=== PATIENT | female | born 1975 | race Asian ===

== ENCOUNTER 2017-08-08 16:53 | Emergency (ER) | payer BC ==
[~2017-08-08] VITALS: Ht 157.5 cm; Wt 52.2 kg
[~2017-08-08 16:53] MED LIST: MULTIVITAMINS1 EAC7 PO
[2017-08-08 17:59] LABS: CLARITY,URINE CLEAR (CLEAR); COLOR,URINE YELLOW (YELLOW); LEUKOCYTE ESTERASE ,URINE NEGATIVE (NEGATIVE); NITRITE,URINE NEGATIVE (NEGATIVE); PROTEIN,URINE DIPSTICK TRACE (NEGATIVE)
[2017-08-08 18:00] LABS: BILIRUBIN,URINE NEGATIVE (NEGATIVE); KETONES,URINE TRACE (NEGATIVE); URINE UROBILINOGEN 0.2 mg/dL (0.2 - 1)
[2017-08-08 18:11] LABS: BACTERIA,URINE FEW /HPF; EPITHELIAL CELLS,URINE MODERATE /LPF; MUCUS,URINE FEW (RARE); WBC,URINE (MAN) 0-5 /HPF (0-5)
[2017-08-08] MEDS: METOCLOPRAMIDE HCL 10 MG/2ML VIAL IV ONE (18:15)
[2017-08-08] MEDS: DICYCLOMINE HCL 20 MG/2 ML VIAL IM ONE (18:15)
[2017-08-08] MEDS: KETOROLAC TROMETHAMINE 30 MG/ML VIAL IV STA (18:15)
[2017-08-08 18:17] LABS: BASOPHILS % 0.2 % (0.0-1.0); EOSINOPHILS # (AUTO) 0.1 (0.0-0.4); EOSINOPHILS % 0.8 % (0.0-6.0); HEMOGLOBIN 15.5 g/dL (12.0-16.0); LYMPHOCYTES # (AUTO) 2.2 (1.0-3.2); LYMPHOCYTES % 25.4 % (18.0-39.1); MEAN CORPUSCULAR HEMOGLOBIN 30.3 pg (28-32); MEAN CORPUSCULAR HGB CONC 33.7 g/dL (31-35); MONOCYTES # (AUTO) 0.4 (0.2-0.8); NEUTROPHILS % 68.3 % (38.7-80.0); PLATELET COUNT 245 x10e3/uL (140-360); RED BLOOD COUNT 5.11 x10e6/uL (3.6-5.1); RED CELL DISTRIBUTION WIDTH 12.5 % (11.7-14.4)
[2017-08-08 18:33] LABS: ALANINE AMINOTRANSFERASE 31 IU/L (0-55); ALBUMIN 4.4 g/dL (3.5-5.0); ALBUMIN/GLOBULIN RATIO 1.3 (0.8-2.0); ALKALINE PHOSPHATASE 55 IU/L (40-150); ANION GAP 12.4 mmol/L (8-16); BLOOD UREA NITROGEN 7 mg/dL (7-26); BUN/CREATININE RATIO 10 (6-25); CALCIUM 9.5 mg/dL (8.4-10.2); CARBON DIOXIDE 26 mmol/L (22-29); CHLORIDE 104 mmol/L (98-107); CREATININE, SERUM 0.71 mg/dL (0.57-1.11); EST GLOMERULAR FILTRATION RATE > 60 ML/MIN (60-); GLUCOSE 90 mg/dL (74-118); POTASSIUM 3.4 mmol/L (3.5-5.1); SODIUM 139 mmol/L (136-145)
== END 2017-08-08 20:05 | disposition home or self-care (01) ==
LOC: ER 16:53
DX: G43.909 Migraine, unspecified, not intractable, without status migrainosus (principal)
CPT/HCPCS: 36415; 80053; 81001; 81025; 85025; 99284; J0500; J1885; J2765

== ENCOUNTER → 2018-08-09 | Outpatient (CLI) | payer BC ==
[~2018-08-09] MED LIST changes: +DIATRIZOATE MEGL/DIATRIZOA SOD 30 ML BTL PO ONE; +IOPAMIDOL 370 MG/ML 200 ML INFUS..BTL INJ ONE; +SODIUM CHLORIDE 0.9% 50ML 50 ML ONE
--- NOTE | 2018-08-09 17:39 | Diagnostic Imaging Report ---
EXAM: CT Abdomen and Pelvis WITH contrast INDICATION: Left lower quadrant pain. Diarrhea. Prior pelvic surgery. COMPARISON: None. TECHNIQUE: Abdomen and pelvis were scanned utilizing a multidetector helical scanner from the lung base to the pubic symphysis after administration of IV contrast. Coronal and sagittal reformations were obtained. Routine protocol was performed. Scan was performed when during portal venous phase. IV CONTRAST: 100 mL of Isovue-370 ORAL CONTRAST: Gastrografin COMPLICATIONS: None RADIATION DOSE: Total DLP: 168.37 mGy*cm Estimated effective dose: (DLP x 0.015 x size factor) mSv CTDIvol has been reviewed. It is below the limits set by the Radiation Protocol Committee (RPC). Dose modulation, iterative reconstruction, and/or weight based adjustment of the mA/kV was utilized to reduce the radiation dose to as low as reasonably achievable. FINDINGS: LINES and TUBES: None. LOWER THORAX: Unremarkable HEPATOBILIARY: No focal hepatic lesions. No biliary ductal dilation. GALLBLADDER: No radio-opaque stones or sludge. No wall thickening. SPLEEN: No splenomegaly. PANCREAS: No focal masses or ductal dilatation. ADRENALS: No adrenal nodules KIDNEYS/URETERS: Kidneys enhance symmetrically. No hydronephrosis. No cystic or solid mass lesions. No stones. GI TRACT: Questionable mucosal thickening in the distal colon. No bowel obstruction. Appendix is normal. PELVIC ORGANS/BLADDER: 4.1 cm right adnexal cyst. LYMPH NODES: No lymphadenopathy. VESSELS: Unremarkable. PERITONEUM / RETROPERITONEUM: No free air or fluid. BONES: Unremarkable. SOFT TISSUES: Unremarkable. IMPRESSION: Questionable mucosal thickening in the distal colon. No bowel obstruction. Appendix is normal. GI consultation may be of benefit. 4.1 cm right adnexal cyst. Signed by: Dr. Hira Patten M.D. on 08/09/2018 5:36 PM
== END ==
LOC: CT 15:36
PROVIDERS: ATTEND Internal Medicine Gastroenterology
DX: R10.32 Left lower quadrant pain (principal)
CPT/HCPCS: 74177; 81025; Q9967

== ENCOUNTER → 2018-08-18 | Day surgery (SDC) | payer BC ==
[~2018-08-18] MED LIST changes: +CLARITIN-D 241 EACH PO; -DIATRIZOATE MEGL/DIATRIZOA SOD 30 ML BTL PO ONE; +FENTANYL CITRATE/PF 100MCG/2 ML INJ ONE; +HYOSCYAMINE SULFATE 0.5 MG/ML INJ ONE; -IOPAMIDOL 370 MG/ML 200 ML INFUS..BTL INJ ONE; +MIDAZOLAM HCL 2 MG/2 ML VIAL ONE; +PROPOFOL IV EMULSION 10 MG/ML 50 ML VIAL ONE; -SODIUM CHLORIDE 0.9% 50ML 50 ML ONE
[2018-08-18 08:41] LABS: WBC,FECAL (FECAL LACTOFERRIN) POSITIVE (NEGATIVE)
[2018-08-18 09:15] VITALS: BP 110/74
--- NOTE | 2018-08-18 15:26 | Operative Report ---
DATE OF PROCEDURE: 08/18/2018 SURGEON: Hossein Burgess MD PROCEDURES: 1. Esophagogastroduodenoscopy with biopsies. 2. Colonoscopy with biopsies. INDICATIONS FOR EGD: Heartburn, bloating. INDICATIONS FOR COLONOSCOPY: Lower abdominal pain, diarrhea, history of bloody stools. MEDICATIONS: The patient was done under MAC, please see anesthesiologist's note. PROCEDURE IN DETAIL: With the patient in left lateral decubitus position, a flexible fiberoptic Olympus gastroscope was introduced into the esophagus under direct visualization without any difficulty. There was some patchy erythema noted in the distal esophagus. The scope was then advanced with ease into the stomach and mucosa overlying the antrum and the body revealed some patchy erythema and low-grade to moderate edema and biopsies were obtained and sent to stain for H pylori. The pylorus was of normal contour and shape, it was intubated with ease and the scope was advanced all the way to the second portion of the duodenum. The scope was then withdrawn slowly. Mucosa overlying the proximal second portion and duodenal bulb appeared to be within normal limits. The scope was then withdrawn back into the stomach and retroflexed and mucosa overlying the fundus and cardia appeared to be within normal limits. The scope was then straightened out, it was subsequently withdrawn. The patient tolerated the procedure well. IMPRESSION: 1. Distal esophagitis, mild. 2. Gastritis, biopsied. Biopsies sent to stain for Helicobacter pylori. 3. Rule out sprue. PLAN: Follow up histology. Initiate Protonix 40 mg one p.o. q.a.m. a.c. The patient was then turned around. After adequate lubrication of the anal canal, flexible fiberoptic Olympus colonoscope was inserted into the rectum with ease and advanced all the way to the cecum. Mucosa overlying the cecum appeared to be within normal limits. The ileocecal valve was intubated and the scope was advanced into the terminal ileum, biopsies were obtained. The scope was then withdrawn back into the colon. It was then withdrawn slowly. Mucosa overlying the ascending, transverse, and descending appeared to be within normal limits. The mucosa overlying the distal sigmoid and the rectum was diffusely ulcerated and multiple biopsies were obtained. The scope was then retroflexed into the distal rectum and no internal hemorrhoids were noted. The scope was then straightened out. It was subsequently withdrawn after securing an adequate stool aspirate that was sent for the appropriate studies. The patient tolerated the procedure well. IMPRESSION: Ulcerative proctosigmoiditis. PLAN: Follow up histology. Follow up stool studies. Start Canasa suppositories 1000 mg at bedtime and Apriso 0.375 g four p.o. daily. Check IBD panel, CRP, and sedimentation rate. Hossein Burgess MD [facility] /[id number] cc: MD Hossein Jansen MD
[2018-08-18 15:34] LABS: C DIFFICILE TOXIN A&B AMP PROB NEGATIVE (NEGATIVE)
--- OUTSIDE RECORDS SUMMARY | 2018-08-20 15:52 | XMS REPORT | Continuity of Care Document ---
Author Author [facility] Organization [facility] Address Unknown Phone Unavailable Care Team Providers Care Public Safety Teacher Name Role Phone MD Trice, Kurtis ARRINGTON Unavailable Insurance Providers Payer name Policy type / Coverage type Policy ID Covered republican ID Policy Merchant [facility] [employer] - [facility] Encounters Encounter Performer Location Date Office Visit Kurtis Carnes MD [facility] September 16, 2014 Problems Problem Effective Dates Problem Status MENORRHAGIA September 08, 2014 Active PELVIC PAIN September 08, 2014 Active 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, 2014 Active Procedures Date Description Comments September 08, 2014 smoking status Never smoker Vital Signs Date Description Test Result September 08, 2014 height E&M - 8302-2 HEIGHT 62 in September 08, 2014 weight E&M - 3141-9 WEIGHT 96 lb September 08, 2014 temperature E&M TEMPERATURE 98.1 deg f September 08, 2014 respiratory rate E&M - 9279-1 RESP RATE 16 /min September 08, 2014 pulse rate E&M - 8867-4 PULSE RATE 68 /min September 08, 2014 blood pressure, systolic - 8480-6 BP SYSTOLIC 113 mm Hg September 08, 2014 blood pressure, diastolic - 8462-4 BP DIASTOLIC 78 mm Hg Results Date Description Test Name Value Reference Interpretation Status September 08, 2014 hemoglobin, blood HGB 13.8 g/dL 12.0-16.0 September 08, 2014 hematocrit, blood HCT 42.5 % 36.0-48.0 September 08, 2014 platelet count PLATELETS 195 K/CMM /mm3 133-450 September 08, 2014 sodium, serum SODIUM 140 MEQ/L mmol/L 135-145 September 08, 2014 potassium, serum POTASSIUM 4.0 MEQ/L mmol/L 3.5-5.1 September 08, 2014 creatinine, serum CREATININE 0.5 mg/dL 0.5-1.4 September 08, 2014 urea nitrogen, blood BUN 9 mg/dL 7-September 08, 2014 urea nitrogen/creatinine ratio, serum BUN/CREAT 18 null 6-25 September 08, 2014 albumin, serum ALBUMIN 4.5 g/dL 3.5-5.0 September 08, 2014 calcium, serum CALCIUM 9.5 mg/dL 8.5-10.5 September 08, 2014 alanine aminotransferase (SGPT), serum SGPT (ALT) 29 U/L 0-65 September 08, 2014 aspartate aminotransferase (SGOT), serum SGOT (AST) 25 U/L 0-37 September 08, 2014 alkaline phosphatase, serum ALK PHOS 67 U/L 39-136 September 08, 2014 thyroid stimulating hormone, serum TSH 0.916 uIU/mL 0.360-3.740
--- OUTSIDE RECORDS SUMMARY | 2018-08-20 15:52 | XMS REPORT | Continuity of Care Document ---
Author Author [facility] Address Unknown Phone Unavailable Care Team Providers Care Paediatric Surgeon Name Role Phone MD Dylon, Lindsey ARRINGTON Unavailable Insurance Providers Payer name Policy type / Coverage type Policy ID Covered constitution party ID Policy Merchant [facility] [employer] - [facility] [employer] - [facility] [employer] - [facility] Encounters Encounter Performer Location Date Office Visit Lindsey Osborne MD [facility] September 08, 2014 Problems Problem Effective Dates Problem Status MENORRHAGIA September 08, 2014 Active PELVIC PAIN September 08, 2014 Active Procedures Date Description Comments September [...]
--- OUTSIDE RECORDS SUMMARY | 2018-08-20 15:52 | XMS REPORT | Continuity of Care Document ---
Author Author [facility] Address Unknown Phone Unavailable Care Team Providers Care Fixed Wing Aircraft Crew Chief Name Role Phone MD Dylon, Lindsey ARRINGTON Unavailable Insurance Providers Payer name Policy type / Coverage type Policy ID Covered constitution party ID Policy Merchant [facility] [employer] - [facility] [employer] - [facility] [employer] - [facility] Encounters Encounter Performer Location Date Lab Report Lindsey Osborne MD [facility] September 08, 2014 Problems Problem Effective Dates [...]
--- OUTSIDE RECORDS SUMMARY | 2018-08-20 15:52 | XMS REPORT | Continuity of Care Document ---
Author Author [facility] Address Unknown Phone Unavailable Problems Problem Status Onset Date Classification Date Reported Comments Source BENIGN NEOPLASM OF OVARY Active 09/16/2014 Condition 09/16/2014 Medical Group 625.9 - FEM GENITAL SYM 626.2 - EXCESSIV Active 09/08/2014 [facility] MENORRHAGIA Active 09/08/2014 Condition 09/16/2014 Medical Group PELVIC PAIN Active 09/08/2014 Condition 09/16/2014 Medical Group Medications Medication Details Route Status Patient Instructions Ordering Provider Order Date Source Allergies, Adverse Reactions, Alerts Substance Category Reaction Severity Reaction type Status Date Reported Comments Source Immunizations Immunization Date Given Site Status Last Updated Comments Source Results Order Name Results Value Reference Range Date Interpretation Comments Source Pelvis w Pelvis Transvaginal US Pelvis w Pelvis Transvaginal US TRANSVESICAL AND TRANSVAGINAL PELVIC ULTRASOUND: CLINICAL HISTORY: 625.9 Unspecified Symptom Associated with Female Genital Organs TECHNIQUE AND FINDINGS: Multiple static images from transvesical and transvaginal pelvic ultrasound are submitted for interpretation. COMPARISON: 09/12/2014. TRANSVESICAL PELVIC ULTRASOUND: Normal urinary bladder. The uterus is normal in size measuring 8.7 x 3.2 x 4.7 cm with endometrial stripe thickness measuring 6 mm. The right ovary is normal in size measuring 3.6 x 1.8 x 1.8 cm containing scattered follicles. A simple cyst measuring 4.1 x 2.9 x 2.9 cm is seen in the left adnexa without definite identifiable ovarian parenchyma. No free pelvic fluid. TRANSVAGINAL PELVIC ULTRASOUND: Normal size uterus with endometrial stripe thickness measuring 7 mm. Normal size right ovary measuring 2.1 x 1.9 x 1.7 cm containing scattered follicles and a 1.3 cm simple follicular cyst. Normal size left ovary measuring 3.5 x 1.9 x 1.7 cm containing scattered follicular cysts measuring up to 1.3 cm in maximum. An adjacent simple left paraovarian cyst is again seen measuring 4.2 x 2.5 x 3.3 cm (previously 4.8 x 4.4 x 2.1 cm). No free pelvic fluid. IMPRESSION: 1. Decreasing size left paraovarian cyst. Scattered follicles and follicular cysts otherwise in both ovaries. Additional short interval follow-up is recommended to document further regression. 2. Normal uterus and endometrial stripe. SL:10/20/2014 - - Read by: Niko Lopes MD Dictated Date/time: 10/21/14 07:49 Electronically Signed by: Niko Lopes MD 10/21/14 07:55 FINAL REPORT [facility] Pelvis Transvaginal US Pelvis Transvaginal US EXAM: Pelvic ultrasound HISTORY: Pelvic pain, menorrhagia. COMPARISON: None. TECHNIQUE: Transabdominal and transvaginal pelvic ultrasound FINDINGS: TRANSABDOMINAL PELVIC ULTRASOUND: The uterus measures 8.4 cm length. The ovaries are not visualized. The bladder appears unremarkable. TRANSVAGINAL PELVIC ULTRASOUND: Exam performed to better evaluate the ovaries and endometrium. The endometrial stripe measures 0.4 cm thickness. The myometrium appears unremarkable. The cervix is unremarkable. Both ovaries are visualized and contain follicles. An approximately 4.8 x 4 x 2.1 cm anechoic, somewhat elongated cystic mass is seen in the left adnexa. Small amount of free fluid in the cul-de-sac is likely physiological. IMPRESSION: An approximately 5 cm cystic mass in the left adnexa may reflect a parovarian cyst or hydrosalpinx. A 6-8 weeks follow-up ultrasound is advised to reevaluate. SL: 09/12/2014 - - Read by: Lisandro Díaz MD Dictated Date/time: 09/12/14 14:07 Electronically Signed by: Lisandro Díaz MD 09/12/14 14:12 FINAL REPORT [facility] Chemistry SODIUM 140 MEQ/L mmol/L 135 - 145 09/08/2014 Medical Group Chemistry POTASSIUM 4.0 MEQ/L mmol/L 3.5 - 5.1 09/08/2014 [facility] Chemistry CREATININE 0.5 mg/dL 0.5 - 1.4 09/08/2014 [facility] Chemistry BUN 9 mg/dL 7 - 22 09/08/2014 [facility] Chemistry BUN/CREAT 18 6 - 25 09/08/2014 [facility] Chemistry ALBUMIN 4.5 g/dL 3.5 - 5.0 09/08/2014 [facility] Chemistry CALCIUM 9.5 mg/dL 8.5 - 10.5 09/08/2014 Medical [facility] Chemistry SGPT (ALT) 29 U/L 0 - 65 09/08/2014 Medical [facility] Chemistry SGOT (AST) 25 U/L 0 - 37 09/08/2014 Medical [facility] Chemistry ALK PHOS 67 U/L 39 - 136 09/08/2014 Medical [facility] Chemistry TSH 0.916 uIU/mL 0.360 - 3.740 09/08/2014 Medical [facility] Hematology HGB 13.8 g/dL 12.0 - 16.0 09/08/2014 Medical [facility] Hematology HCT 42.5 % 36.0 - 48.0 09/08/2014 Medical [facility] Hematology PLATELETS 195 K/CMM /mm3 133 - 450 09/08/2014 Medical [facility] Vital Signs Vital Sign Value Date Comments Source Height 62 09/08/2014 Medical [facility] Weight 96 09/08/2014 [facility] Temperature Oral (F) 98.1 F 09/08/2014 Medical Group Respitory Rate 16 09/08/2014 [facility] Heart Rate 68 09/08/2014 [facility] Systolic (mm Hg) 113 09/08/2014 [facility] Diastolic (mm Hg) 78 09/08/2014 [facility] Encounters Location Location Details Encounter Type Encounter Number Reason For Visit Attending Provider ADM Date DC Date Status Source [facility] Office Visit [id number] Brenden Verma MD 09/08/2014 09/08/2014 [facility] Lab Report [id number] Brenden Verma MD 09/08/2014 09/08/2014 Medical [facility] Outpatient Imaging [facility] [id number] Brenden Verma 09/12/2014 09/13/2014 [facility] Office Visit [id number] Kurtis Carnes MD 09/16/2014 09/16/2014 [facility] Outpatient Imaging [facility] [id number] Brenden Verma 10/20/2014 10/21/2014 [facility] Outpatient [id number] BRENDEN VERMA 03/28/2016 Active [facility] Procedures Procedure Code Date Perfomer Comments Source
--- OUTSIDE RECORDS SUMMARY | 2018-08-20 15:52 | XMS REPORT ---
Author [facility] Address Unknown Phone Unavailable Care Team Providers Care .Net Programmer Name Role Phone MARY VIVEROS Unavailable Unavailable Problems This patient has no known problems. Allergies, Adverse Reactions, Alerts This patient has no known allergies or adverse reactions. Medications This patient has no known medications. Results Test Description Test Time Test Comments Text Results Atomic Results Result Comments CT ABDOMEN/PELVIS W 2018-08-09 17:32:00 [facility] [address] [address] Patient Name: BALA MOREIRA MR #: [id number] : 1975 Age/Sex: 43/F Req #: [id number] Adm Physician: Ordered by: MARY VIVEROS MD Report #: [id number] Location: CT Room/Bed: Procedure: [id number] CT/CT ABDOMEN/PELVIS W Exam Date: 08/09/18 Exam Time: 1710 REPORT STATUS: Signed EXAM: CT Abdomen and Pelvis WITH contrast INDICATIO N: Left lower quadrant pain. Diarrhea. Prior pelvic surgery. COMPARISON: None. TECHNIQUE: Abdomen and pelvis were scanned utilizing a multidetector helical scanner from the lung base to the pubic symphysis after administration of IV contrast. Coronal and sagittal reformations were obtained. Routine protocol was performed. Scan was performed when during portal venous phase. IV CONTRAST: 100 mL of Isovue-370 ORAL CONTRAST: Gastrografin COMPLICATIONS: None RADIATION DOSE: Total DLP: 168.37 mGy*cm Estimated effective dose: (DLP x 0.015 x size factor) mSv CTDIvol has been reviewed. It is below the limits set by the Radiation Protocol Committee (RPC). Dose modulation, iterative reconstruction, and/or weight based adjustment of the mA/kV was utilized to reduce the radiation dose to as low as reasonably achievable. FINDINGS: LINES and TUBES: None. LOWER THORAX: Unremarkable HEPATOBILIARY: No focal hepatic lesions. No biliary ductal dilation. GALLBLADDER: No radio- opaque stones or sludge. No wall thickening. SPLEEN: No splenomegaly. PANCREAS: No focal masses or ductal dilatation. ADRENALS: No adrenal nodules KIDNEYS/URETERS: Kidneys enhance symmetrically. No hydronephrosis. No cystic or solid mass lesions. No stones. GI TRACT: Questionable mucosal thickening in the distal colon. No bowel obstruction. Appendix is normal. PELVIC ORGANS/BLADDER: 4.1 cm right adnexal cyst. LYMPH NODES: No lymphadenopathy. VESSELS: Unremarkable. PERITONEUM / RETROPERITONEUM: No free air or fluid. BONES: Unremarkable. SOFT TISSUES: Unremarkable. IMPRESSION: Questionable mucosal thickening in the distal colon. No bowel obstruction. Appendix is normal. GI consultation may be of benefit. 4.1 cm right adnexal cyst. Signed by: Dr. Hira Patten M.D. on 08/09/2018 5:36 PM Dictated By: HIRA PATTEN MD, MD [id number] Transcribed By: ZA on 08/09/18 1736 COPY TO: MARY VIVEROS MD
--- OUTSIDE RECORDS SUMMARY | 2018-08-20 15:52 | XMS REPORT | Summary of Care ---
Author Organization Unknown Address Unknown Phone Unavailable Encounter HQ Encntr_alias(FIN) [id number] Date(s): 10/20/14 - 10/20/14 [facility] Outpatient Imaging [address] [place], [place] [address]- [phone] Discharge Disposition: Home Physician Attending: Lindsey Osborne MD Vital Signs No data available for this section Problem List No data available for this section Allergies, Adverse Reactions, Alerts No data available for this section Medications No data available for this section Results No data available for this section Immunizations No data available for this section Procedures No data available for this section Social History No data available for this section Assessment and Plan No data available for this section
--- OUTSIDE RECORDS SUMMARY | 2018-08-20 15:52 | XMS REPORT | Summary of Care ---
Author Organization Unknown Address Unknown Phone Unavailable Encounter HQ Encntr_alias(FIN) [id number] Date(s): 09/12/14 - 09/12/14 [facility] Outpatient Imaging [address] [place], [place] [address]- [phone] Discharge Disposition: Home Physician Attending: Lindsey Osborne [...]
== END | disposition home or self-care (01) ==
LOC: OR 05:42
PROVIDERS: ATTEND Internal Medicine Gastroenterology
DX: K51.30 Ulcerative (chronic) rectosigmoiditis without complications (principal); K29.70 Gastritis, unspecified, without bleeding; K20.9 Esophagitis, unspecified; K62.89 Other specified diseases of anus and rectum
CPT/HCPCS: 36415; 43239; 45380; 81025; 83630; 83993; 85651; 86140; 86256; 86671; 87045; 87177; 87328; 87493; J1980; J2250; J2704

== ENCOUNTER 2018-08-30 22:33 | Emergency (ER) | payer BC ==
[~2018-08-30] VITALS: Ht 157.5 cm; Wt 52.2 kg
[~2018-08-30 22:33] MED LIST changes: -FENTANYL CITRATE/PF 100MCG/2 ML INJ ONE; -HYOSCYAMINE SULFATE 0.5 MG/ML INJ ONE; -MIDAZOLAM HCL 2 MG/2 ML VIAL ONE; -PROPOFOL IV EMULSION 10 MG/ML 50 ML VIAL ONE
[2018-08-30 22:56] LABS: BASOPHILS % 0.2 % (0.0-1.0); EOSINOPHILS # (AUTO) 0.1 (0.0-0.4); EOSINOPHILS % 0.6 % (0.0-6.0); HEMATOCRIT 38.3 % (34.2-44.1); HEMOGLOBIN 12.4 g/dL (12.0-16.0); LYMPHOCYTES # (AUTO) 2.5 (1.0-3.2); LYMPHOCYTES % 22.8 % (18.0-39.1); MEAN CORPUSCULAR HEMOGLOBIN 26.2 pg (28-32); MEAN CORPUSCULAR HGB CONC 32.4 g/dL (31-35); MONOCYTES # (AUTO) 0.5 (0.2-0.8); MONOCYTES % 4.9 % (4.4-11.3); NEUTROPHILS # (AUTO) 7.8 (2.1-6.9); NEUTROPHILS % 71.1 % (38.7-80.0); PLATELET COUNT 282 x10e3/uL (140-360); RED BLOOD COUNT 4.73 x10e6/uL (3.6-5.1); RED CELL DISTRIBUTION WIDTH 13.5 % (11.7-14.4)
[2018-08-30 23:10] LABS: ALANINE AMINOTRANSFERASE 20 IU/L (0-55); ALBUMIN 4.4 g/dL (3.5-5.0); ALBUMIN/GLOBULIN RATIO 1.3 (0.8-2.0); ALKALINE PHOSPHATASE 75 IU/L (40-150); ANION GAP 14.4 mmol/L (8-16); BLOOD UREA NITROGEN 5 mg/dL (7-26); BUN/CREATININE RATIO 7 (6-25); CALCIUM 9.8 mg/dL (8.4-10.2); CARBON DIOXIDE 22 mmol/L (22-29); CHLORIDE 102 mmol/L (98-107); CREATININE, SERUM 0.73 mg/dL (0.57-1.11); EST GLOMERULAR FILTRATION RATE > 60 ML/MIN (60-); GLUCOSE 120 mg/dL (74-118); LIPASE 20 U/L (8-78); POTASSIUM 3.4 mmol/L (3.5-5.1); SODIUM 135 mmol/L (136-145)
[2018-08-30 23:46] LABS: CLARITY,URINE CLEAR (CLEAR); COLOR,URINE YELLOW (YELLOW); KETONES,URINE NEGATIVE (NEGATIVE); LEUKOCYTE ESTERASE ,URINE NEGATIVE (NEGATIVE); NITRITE,URINE NEGATIVE (NEGATIVE); PROTEIN,URINE DIPSTICK NEGATIVE (NEGATIVE)
[2018-08-30 23:47] LABS: BILIRUBIN,URINE NEGATIVE (NEGATIVE); URINE UROBILINOGEN 0.2 mg/dL (0.2 - 1)
[2018-08-30 23:53] LABS: BACTERIA,URINE RARE /HPF; EPITHELIAL CELLS,URINE FEW /LPF; RBC,URINE 0-5 /HPF (0-5); WBC,URINE (MAN) 0-5 /HPF (0-5)
[2018-08-31] MEDS ORDERED: POTASSIUM CHLORIDE 20 MEQ TAB CR PO STA (00:24)
== END 2018-08-31 01:19 | disposition home or self-care (01) ==
LOC: ER 22:33
DX: R19.7 Diarrhea, unspecified (principal)
CPT/HCPCS: 36415; 80053; 81001; 83690; 84702; 85025; 93005

== ENCOUNTER → 2019-10-16 | Day surgery (SDC) | payer BC, OTHER ==
[~2019-10-16] MED LIST changes: +APRISO0.375 GM PO; +DEXILANT60 MG PO; +ETOMIDATE 2 MG/ML 10 ML INJ IV ONE; +LIDOCAINE HCL 2% LOCAL INJ 5 ML SDV VIAL INJ ONE; +MIDAZOLAM HCL 2 MG/2 ML VIAL ONE; +PROPOFOL IV EMULSION 10 MG/ML 20 ML VIAL ONE; +PROTONIX20 MG PO
[2019-10-16 12:40] VITALS: BP 122/73
== END | disposition home or self-care (01) ==
LOC: OR 09:00
PROVIDERS: ATTEND Internal Medicine Gastroenterology
DX: K63.89 Other specified diseases of intestine (principal); K51.50 Left sided colitis without complications; K92.1 Melena; R19.7 Diarrhea, unspecified; K21.9 Gastro-esophageal reflux disease without esophagitis; K44.9 Diaphragmatic hernia without obstruction or gangrene; Z87.891 Personal history of nicotine dependence; K64.8 Other hemorrhoids; K52.89 Other specified noninfective gastroenteritis and colitis; Z11.59 Encounter for screening for other viral diseases; Z01.812 Encounter for preprocedural laboratory examination
CPT/HCPCS: 45380; 81025; 87635; J2001; J2704; J2250

== ENCOUNTER 2020-01-11 02:11 | Emergency (ER) | payer BC, OTHER ==
[~2020-01-11] VITALS: Ht 157.5 cm; Wt 52.2 kg
[~2020-01-11 02:11] MED LIST changes: -ETOMIDATE 2 MG/ML 10 ML INJ IV ONE; -LIDOCAINE HCL 2% LOCAL INJ 5 ML SDV VIAL INJ ONE; -MIDAZOLAM HCL 2 MG/2 ML VIAL ONE; -PROPOFOL IV EMULSION 10 MG/ML 20 ML VIAL ONE
[2020-01-11 02:23] LABS: BASOPHILS % 0.3 % (0.0-1.0); EOSINOPHILS # (AUTO) 0.1 (0.0-0.4); HEMATOCRIT 41.6 % (34.2-44.1); HEMOGLOBIN 12.9 g/dL (12.0-16.0); LYMPHOCYTES # (AUTO) 3.6 (1.0-3.2); LYMPHOCYTES % 53.7 % (18.0-39.1); MEAN CORPUSCULAR HEMOGLOBIN 24.2 pg (28-32); MEAN CORPUSCULAR VOLUME 77.9 fL (81-99); MONOCYTES # (AUTO) 0.6 (0.2-0.8); NEUTROPHILS # (AUTO) 2.4 (2.1-6.9); NEUTROPHILS % 35.9 % (38.7-80.0); PLATELET COUNT 288 x10e3/uL (140-360); RED BLOOD COUNT 5.34 x10e6/uL (3.6-5.1); RED CELL DISTRIBUTION WIDTH 16.3 % (11.7-14.4)
--- OUTSIDE RECORDS SUMMARY | 2020-01-11 02:25 | XMS REPORT | Continuity of Care Document ---
Author Author [facility] t Organization [facility] Address [address] [place] [address] Phone Unavailable Care Team Providers Care Career Services Director Name Role Phone ALCIRA DENNEY MD PCP MARY VIVEROS Attphys Unavailable ShpatsLindsey Attphys Payers Payer Name Policy Type Policy Number Effective Date Expiration Date S keiko [id number] 2015 00:00:00 [facility] Problems Condition Name Condition Details Condition Category Status Onset Date Resolution Date Last Treatment Date Treating Clinician Comments Source 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 Condition 09/16/2014 Medical Group Condition Active 2014-09-16 00:00:00 2014-09-16 10:24:49 Bulmaro Portillo 625.9 - FEM GENITAL SYM 626.2 - EXCESSIV 625.9 - FEM GENITAL SYM 626.2 - EXCESSIV Active 09/08/2014 [facility] Active 2014-09-08 00:01:00 2014-09-12 09:29:00 Bulmaro Portillo MENORRHAGIA DELMI RRHAGIA Active 09/08/2014 Condition 09/16/2014 Medical Group Condition Active 2014-09-08 00:00:00 2014-08 10:24:49 Bulmaro Portillo PELVIC PAIN PELV IC PAIN Active 09/08/2014 Condition 09/16/2014 Medical Group Condition Active 2014-09-08 00:00:00 2014-08 10:24:49 Bulmaro Portillo Urinary tract bacterial infections Urinary tract bacterial infec tions Problem Active [facility] Allergies, Adverse Reactions, Alerts Allergy Name Allergy Type Status Severity Reaction(s) Onset Date Inacti ve Date Treating Clinician Comments Source 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 Ordering Clinician Indication Dosage Frequency Signature (SIG) Comments Components Source Loratadine/Pseudoephedrine (Claritin-D 24 Hour Tablet) 1 Each Tab.er.24h Loratadine/Pseudoephedrine (Claritin-D 24 Hour Tablet) 1 Each Tab.er.24h Yes 1 Daily [facility] Multivitamin (Multivitamins) 1 Each Capsule Multivitam in (Multivitamins) 1 Each Capsule Yes 1 Daily [facility] Vital Signs Vital Name Observation Time Observation Value Comments Source [facility] 2014-09[facility]08 [facility] Weight 2014-09-08 19:18:20 [facility] Temperature Oral (F) 2014-09-08 19:18:20 98.1 F [facility] Respitory Rate 2014-09-08 19:18:20 Fernando al Rowe Heart Rate 2014-09-08 19:18:20 [facility] Systolic (mm Hg) 2014-09-08 19:18:20 Lb Portillo Diastolic (mm Hg) 2014-09-08 19:18:20 Mem orirobert Portillo Procedures Procedure Date / Time Performed Performing Clinician [facility] e EGD BIOPSY SINGLE/MULTIPLE 2018-08-18 00:00:00 MARY VIVEROS [facility] COLONOSCOPY AND BIOPSY 2018-08-18 00:00:00 MARY VIVEROS [facility] Computed tomography of abdomen and pelvis with contrast 2018 00:00:00 MARY VIVEROS [facility] Encounters Start Date/Time End Date/Time [facility] ID Source 2018-08-30 22:33:00 2018-08-31 01:19:00 Departed Emergency Room [facility] [id number] [facility] 2018-08-18 05:42:00 2018-08-18 05:42:00 Registered Surgical Day Care [facility] [id number] [facility] 2018-08-09 15:36:00 2018-08-09 15:36:00 Registered Clinic 3 MARY VIVEROS [facility] [id number] [facility] 2017-08-08 16:53:00 2017-08-08 20:05:00 Departed Emergency Room [facility] [id number] [facility] 2014-10-20 13:01:00 2014-10-20 23:59:00 Outpatient Lindsey Osborne TIFFANI [id number] 2014-09-12 09:19:00 2014-09-12 23:59:00 Outpatient Lindsey Osborne [facility] [id number] Results Test Description Test Time Test Comments Results Result Comments Source Urine WBC 2018-08-30 23:53:00 Test Item Urine WBC (test code = 5821-4) 0-5 0-5 [facility] [id number] 23:53:00* Test Item Value Reference Range Interpretation Comments Urine RBC (test code = 97345-1) 0-5 0-5 [facility] Lhlkbwuj7156-11-34 23:53:00* Test Item Value Reference Range Interpretation Comments Urine Bacteria (test code = 70575-7) RARE NONE [facility] Epithelial Dmiqf8646-13-91 23:53:00 * Test Item Value Reference Range Interpretation Comments Urine Epithelial Cells (test code = 75375-6) FEW NONE [facility] Rommf2834-77-88 23:47:00* Test Item Value Reference Range Interpretation Comments Urine Color (test code = 5778-6) YELLOW YELLOW [facility] Uofxvng2694-31-09 23:47:00* Test Item Value Reference Range Interpretation Comments Urine Clarity (test code = 53762-5) CLEAR CLEAR [facility] Specific Txopdna3947-52-74 23:47:00 * Test Item Value Reference Range Interpretation Comments Urine Specific [place] (test code = 5811-5) 1.005 1.010-1.02 5 L [facility] rJ0740-07-19 23:47:00* Test Item Value Reference Range Interpretation Comments Urine pH (test code = 09220-1) 7 5-7 [facility] Leukocyte Tljchvrb4595-00-99 23:47:00* Test Item Value Reference Range Interpretation Comments Urine Leukocyte Esterase (test code = 5799-2) NEGATIVE NEGATIVE [facility] Pyhnwpi4386-82-27 23:47:00* Test Item Value Reference Range Interpretation Comments Urine Nitrite (test code = 71325-8) NEGATIVE NEGATIVE [facility] Pqlfbav5804-98-91 23:47:00* Test Item Value Reference Range Interpretation Comments Urine Protein (test code = 5804-0) NEGATIVE NEGATIVE [facility] Glucose (UA)2018-08-30 23:47:00* Test Item Value Reference Range Interpretation Comments Urine Glucose (UA) (test code = 2349-9) NEGATIVE NEGATIVE [facility] Vpaynvy2835-34-77 23:47:00* Test Item Value Reference Range Interpretation Comments Urine Ketones (test code = 00601-2) NEGATIVE NEGATIVE [facility] Uyblskhwiqhf8843-04-27 23:47:00* Test Item Value Reference Range Interpretation Comments Urine Urobilinogen (test code = 64614-6) 0.2 0.2-1 [facility] Mmynuzmcz4516-97-95 23:47:00* Test Item Value Reference Range Interpretation Comments Urine Bilirubin (test code = 1978-6) NEGATIVE NEGATIVE [facility] Hjuia3239-31-96 23:47:00* Test Item Value Reference Range Interpretation Comments Urine Blood (test code = 68890-9) NEGATIVE NEGATIVE [facility] BrookHuman Chorionic Gonadotropin, Qual 2018-08-30 23:17:00* Test Item Value Reference Range Interpretation Comments Human Chorionic Gonadotropin, Qual (test code = 2118-8) NEGATIVE NEGATIVE [facility] Oidlx0784-76-45 23:11:00* Test Item Value Reference Range Interpretation Comments Sodium Level (test code = 2951-2) 135 136-145 L [facility]Potassium Ndsuj6813-67-12 23:11:00* Test Item Value Reference Range Interpretation Comments Potassium Level (test code = 2823-3) 3.4 3.5-5.1 L [facility] BrookChloride Kjgnd2176-08-74 23:11:00* Test Item Value Reference Range Interpretation Comments Chloride Level (test code = 2075-0) 102 98-107 [facility] BrookCarbon Dioxide Ueayl5629-18-06 23:11:00* Test Item Value Reference Range Interpretation Comments Carbon Dioxide Level (test code = 2028-9) 22 22-29 [facility] BrookAnion Wev4662-79-28 23:11:00* Test Item Value Reference Range Interpretation Comments Anion Gap (test code = 66099-2) 14.4 8-16 [facility]Blood Urea Ajbrcwql7521-21-50 23:11:00* Test Item Value Reference Range Interpretation Comments Blood Urea Nitrogen (test code = 3094-0) 5 7-26 L [facility] BrookCreatinine2019-05-02 23:11:00* Test Item Value Reference Range Interpretation Comments Creatinine (test code = 2160-0) 0.73 0.57-1.11 [facility] BrookBUN/Creatinine Zkkgf1909-07-36 23:11:00* Test Item Value Reference Range Interpretation Comments BUN/Creatinine Ratio (test code = 3097-3) 7 6-25 [facility] BrookEstimat Glomerular Filtration Rate 2018-08-30 23:11:00* Test Item Value Reference Range Interpretation Comments Estimat Glomerular Filtration Rate (test code = 465031437) > 60 >60 Ranges were taken from the National Kidney Disease Education Program and the [facility] Kidney Foundation literature.Reference ranges:60 or greater: Fqnkdx84-68 ( for 3 consecutive months): Chronic kidney disease 15 or less: Kidney failureAdventHealth Rollins BrookGlucose Ftsmg5486-03-92 23:11:00* Test Item Value Reference Range Interpretation Comments Glucose Level (test code = GDA9000) 120 74-118 H [facility] BrookCalcium Gcjgv3674-84-52 23:11:00* Test Item Value Reference Range Interpretation Comments Calcium Level (test code = 31946-2) 9.8 8.4-10.2 [facility] BrookTotal Jorwlegsf4306-92-21 23:11:00* Test Item Value Reference Range Interpretation Comments Total Bilirubin (test code = 1975-2) 0.4 0.2-1.2 [facility] BrookAspartate Amino Transf (AST/SGOT) 2018-08-30 23:11:00* Test Item Value Reference Range Interpretation Comments Aspartate Amino Transf (AST/SGOT) (test code = Aspartate Amino Transf (AST/SGOT)) 25 5-34 [facility] BrookAlanine Aminotransferase (ALT/SGPT) 2018-08-30 23:11:00* Test Item Value Reference Range Interpretation Comments Alanine Aminotransferase (ALT/SGPT) (test code = 1742-6) 20 0-55 [facility] Cuhpbxv0898-19-54 23:11:00* Test Item Value Reference Range Interpretation Comments Total Protein (test code = 2885-2) 7.9 6.5-8.1 [facility] BrookAlbumin2019-05-02 23:11:00* Test Item Value Reference Range Interpretation Comments Albumin (test code = 1751-7) 4.4 3.5-5.0 [facility] BrookGlobulin2019-05-02 23:11:00* Test Item Value Reference Range Interpretation Comments Globulin (test code = 90799-2) 3.5 2.3-3.5 [facility] BrookAlbumin/Globulin Najqq7634-79-02 23:11:00 * Test Item Value Reference Range Interpretation Comments Albumin/Globulin Ratio (test code = 1759-0) 1.3 0.8-2.0 [facility] BrookAlkaline Izpwlpbkqsc1816-99-26 23:11:00* Test Item Value Reference Range Interpretation Comments Alkaline Phosphatase (test code = 6768-6) 75 40-150 [facility] BrookLipase2019-05-02 23:11:00* Test Item Value Reference Range Interpretation Comments Lipase (test code = 3040-3) 20 8-78 [facility] BrookWhite Blood Wzpxg9203-93-90 23:01:00* Test Item Value Reference Range Interpretation Comments White Blood Count (test code = 6690-2) 10.96 4.8-10.8 H [facility] BrookRed Blood Pzunu2088-57-15 23:01:00* Test Item Value Reference Range Interpretation Comments Red Blood Count (test code = 789-8) 4.73 3.6-5.1 [facility] BrookHemoglobin2019-05-02 23:01:00* Test Item Value Reference Range Interpretation Comments Hemoglobin (test code = 23855-9) 12.4 12.0-16.0 [facility] BrookHematocrit2019-05-02 23:01:00* Test Item Value Reference Range Interpretation Comments Hematocrit (test code = 4544-3) 38.3 34.2-44.1 [facility] BrookMean Corpuscular Yqjkqc1298-11-42 23:01:00* Test Item Value Reference Range Interpretation Comments Mean Corpuscular Volume (test code = 787-2) 81.0 81-99 [facility] BrookMean Corpuscular Mpmatjfkpd5388-75-16 23:01:00* Test Item Value Reference Range Interpretation Comments Mean Corpuscular Hemoglobin (test code = 785-6) 26.2 28-32 L [facility] BrookMean Corpuscular Hemoglobin Concent 2018-08-30 23:01:00* Test Item Value Reference Range Interpretation Comments Mean Corpuscular Hemoglobin Concent (test code = 786-4) 32.4 31-35 [facility] BrookRed Cell Distribution Wycty5438-95-77 23:01:00* Test Item Value Reference Range Interpretation Comments Red Cell Distribution Width (test code = 37599-1) 13.5 11.7 -14.4 [facility] BrookPlatelet Ceeaz7258-47-90 23:01:00* Test Item Value Reference Range Interpretation Comments Platelet Count (test code = 777-3) 282 140-360 [facility] BrookNeutrophils (%) (Auto)2018-08-30 23:01:00 * Test Item Value Reference Range Interpretation Comments Neutrophils (%) (Auto) (test code = 94492-2) 71.1 38.7-80.0 [facility] BrookLymphocytes (%) (Auto)2018-08-30 23:01:00 * Test Item Value Reference Range Interpretation Comments Lymphocytes (%) (Auto) (test code = 736-9) 22.8 18.0-39.1 [facility] BrookMonocytes (%) (Auto)2018-08-30 23:01:00* Test Item Value Reference Range Interpretation Comments Monocytes (%) (Auto) (test code = 5905-5) 4.9 4.4-11.3 [facility] BrookEosinophils (%) (Auto)2018-08-30 23:01:00 * Test Item Value Reference Range Interpretation Comments Eosinophils (%) (Auto) (test code = 713-8) 0.6 0.0-6.0 [facility] BrookBasophils (%) (Auto)2018-08-30 23:01:00* Test Item Value Reference Range Interpretation Comments Basophils (%) (Auto) (test code = 706-2) 0.2 0.0-1.0 [facility] BrookIM GRANULOCYTES %2018-08-30 23:01:00* Test Item Value Reference Range Interpretation Comments IM GRANULOCYTES % (test code = IM GRANULOCYTES %) 0.4 0.0- 1.0 [facility] BrookNeutrophils # (Auto)2018-08-30 23:01:00* Test Item Value Reference Range Interpretation Comments Neutrophils # (Auto) (test code = 751-8) 7.8 2.1-6.9 H [facility] BrookLymphocytes # (Auto)2018-08-30 23:01:00* Test Item Value Reference Range Interpretation Comments Lymphocytes # (Auto) (test code = 23221-6) 2.5 1.0-3.2 [facility] BrookMonocytes # (Auto)2018-08-30 23:01:00* Test Item Value Reference Range Interpretation Comments Monocytes # (Auto) (test code = 742-7) 0.5 0.2-0.8 [facility] BrookEosinophils # (Auto)2018-08-30 23:01:00* Test Item Value Reference Range Interpretation Comments Eosinophils # (Auto) (test code = 711-2) 0.1 0.0-0.4 [facility] BrookBasophils # (Auto)2018-08-30 23:01:00* Test Item Value Reference Range Interpretation Comments Basophils # (Auto) (test code = 704-7) 0.0 0.0-0.1 [facility] BrookAbsolute Immature Granulocyte (auto 2018-08-30 23:01:00* Test Item Value Reference Range Interpretation Comments Absolute Immature Granulocyte (auto (leslie t code = Absolute Immature Granulocyte (auto) 0.04 0-0.1 [facility] Uufakzwkiaiy0057-21-20 11:37:00* Test Item Value Reference Range Interpretation Comments Stool Calprotectin (test code = 54960-4) 460 0-120 H Results verified by repeat testingConcentration Interpretation Follow- Up<16 - 50 ug/g Normal None>50 -120 ug/g Borderline Re- evaluate in 4-6 weeks >120 ug/g Abnormal Repeat as clinically indicatedPerformed at: - [facility] [id number] Director: Lencho Lentz MD, Phone: [phone] Rollins Brook Saccharomyces cerevisiae IgG Ti5918-00-52 03:12:00* Test Item Value Reference Range Interpretation Comments Saccharomyces cerevisiae IgG Ab (test code = 6713-2) 94.3 0 .0-24.9 H Negative <20.0 Equivocal 20.1 - 24.9 Positive >or= 25.0[facility] Hospitalaccharomyces cerevisiae IgA Ab 2018-08-23 03:12:00* Test Item Value Reference Range Interpretation Comments Saccharomyces cerevisiae IgA Ab (test code = 77358-8) 57.3 0.0-24.9 H Negative <20.0 Equivocal 20.1 - 24.9 Positive >or= 25.0IgA and IgG antibody testing for S. cerevisiae isuseful adjunct testing for differentiating Crohn'sdisease and ulcerative colitis. Close to 80% ofCrohn's disease patients are positive for eitherIgA or IgG. In ulcerative colitis, less than 15% arepositive for IgG and less than 2% are positive forIgA. Fewer than 5% are positive for either IgG orIgA antibody, and no healthy controls had antib odyfor both.[facility] BrookAtypical g-MPQE3668-52VNBV5070-31-90 03:12:00* Test Item Value Reference Range Interpretation Comments Atypical p-ANCA (test code = 49876-8) 1:80 Neg:<1:20 H The atypical pANCA pattern has been observed in asignificant percentage of patie nts with ulcerative colitis,primary sclerosing cholangitis and autoimmune hepati tis. ASCA+/PANCA- Suggestive of Crohn's disease ASCA-/PANCA+ S uggestive of Ulcerative colitisPerformed at: - [facility] [id number] Director: Lnecho Lentz MD, Phone: [phone] Roll[facility] BrookC-Reactive Rvawpca8391-76-94 12:27:00 * Test Item Value Reference Range Interpretation Comments C-Reactive Protein (test code = 1988-5) 4.6 0.0-4.9 Performed at: - [facility] [address] [id number] Director: Germán Dumont MD, Phone: [phone] Rollins BrookClostridium Difficile Toxin A & T6917-26-29 15:34:00* Test Item Value Reference Range Interpretation Comments Clostridium Difficile Toxin A & B (test code = 359986486) NEGATIVE NEGATIVE Testing on stool aspirate specimens is outside manager business continuity claims since specime n type not validated on this assay.[facility] Erythrocyte Sedimentation Wwwg5584-27-24 12:00:00* Test Item Value Reference Range Interpretation Comments Erythrocyte Sedimentation Rate (test code = 4537-7) 11 0 [facility] Lactoferrin (LAB)2018-08-18 08:41:00* Test Item Value Reference Range Interpretation Comments Stool Lactoferrin (LAB) (test code = 73852-7) POSITIVE NEGATIVE H Testing on stool aspirate specimens is outside manager business continuity claims since specime n type not validated on this assay.[facility] BrookUrine Hjvg1911-62-31 06:44:00* Test Item Value Reference Range Interpretation Comments Urine Test (test code = 2106-3) NEGATIVE NEGATIVE [facility] BrookCT ABDOMEN/PELVIS [id number] 17:32:00 [facility] [address] [place] [address] Patient Name: BALA MOREIRA MR #: [id number] : 1975 Age/Sex: 43/F Req #: [id number] Adm Physician: Ordered by: AMRY VIVEROS MD Report #: [id number] Location: CT Room/Bed: Procedure: [id number] CT/C T ABDOMEN/PELVIS W Exam Date: 08/09/18 Exam Time: 17 10 REPORT STATUS: Signed EXAM: C T Abdomen and Pelvis WITH contrast INDICATION: Left lower quadrant pain. Ronel rrhea. Prior pelvic surgery. COMPARISON: None. TECHNIQUE: Abdomen and pelvis were scanned utilizing a multidetector helical scanner from the lung ba se to the pubic symphysis after administration of IV contrast. Coronal and sag ittal reformations were obtained. Routine protocol was performed. Scan was per formed when during portal venous phase. IV CONTRAST: 100 mL of Isovue -370 ORAL CONTRAST: Gastrografin COMPLICATIONS: None RADIATION DOSE: Total DLP: 168.37 mGy*cm Estimated effective dos e: (DLP x 0.015 x size factor) mSv CTDIvol has been reviewed. It is below the limits set by the Radiation Protocol Committee (RPC). Dose modulat ion, iterative reconstruction, and/or weight based adjustment of the mA/kV was utilized to reduce the radiation dose to as low as reasonably achievable. FINDINGS: LINES and TUBES: None. LOWER THORAX: Unremarkable H EPATOBILIARY: No focal hepatic lesions. No biliary ductal dilation. G ALLBLADDER: No radio-opaque stones or sludge. No wall thickening. SPLEEN: No splenomegaly. PANCREAS: No focal masses or ductal dilatation. AD RENALS: No adrenal nodules KIDNEYS/URETERS: Kidneys enhance symmetrical ly. No hydronephrosis. No cystic or solid mass lesions. No stones. GI T RACT: Questionable mucosal thickening in the distal colon. No bowel obstructio n. Appendix is normal. PELVIC ORGANS/BLADDER: 4.1 cm right adnexal cyst. LYMPH NODES: No lymphadenopathy. VESSELS: Unremarkable. PERITONEUM / RETROPERITONEUM: No free air or fluid. BONES: Unremarkable. SOFT TIS SUES: Unremarkable. IMPRESSION: Questionable mucosal thicken ing in the distal colon. No bowel obstruction. Appendix is normal. GI consulta tion may be of benefit. 4.1 cm right adnexal cyst. Signed by: Dr. Anselmo Patten M.D. on 08/09/2018 5:36 PM Dictated By: UMBERTO PATTEN MD, MD E lectronically Signed By: UMBERTO PATTEN MD, MD on 08/09/18 173 Transcribed By: Anselmo JOSE on 08/09/18 173 COPY TO: MARY VIVEROS MD Sodium Level 2017-08-08 18:33:00* Test Item Value Reference Range Interpretation Comments Sodium Level (test code = 2951-2) 139 136-145 [facility] BrookPotassium Qryts3721-75-01 18:33:00* Test Item Value Reference Range Interpretation Comments Potassium Level (test code = 2823-3) 3.4 3.5-5.1 L [facility] BrookChloride Okbwm7705-79-36 18:33:00* Test Item Value Reference Range Interpretation Comments Chloride Level (test code = 2075-0) 104 98-107 [facility] BrookCarbon Dioxide Aavsn9987-66-58 18:33:00* Test Item Value Reference Range Interpretation Comments Carbon Dioxide Level (test code = 2028-9) 26 22-29 [facility] BrookAnion Zao7039-29-60 18:33:00* Test Item Value Reference Range Interpretation Comments Anion Gap (test code = 02147-1) 12.4 8-16 [facility] BrookBlood Urea Qaceummz9782-56-39 18:33:00* Test Item Value Reference Range Interpretation Comments Blood Urea Nitrogen (test code = 3094-0) 7 7-26 [facility] BrookCreatinine2018-04-10 18:33:00* Test Item Value Reference Range Interpretation Comments Creatinine (test code = 2160-0) 0.71 0.57-1.11 [facility] BrookBUN/Creatinine Jjvpj3834-17-78 18:33:00* Test Item Value Reference Range Interpretation Comments BUN/Creatinine Ratio (test code = 3097-3) 10 6-25 [facility] BrookEstimat Glomerular Filtration Rate 2017-08-08 18:33:00* Test Item Value Reference Range Interpretation Comments Estimat Glomerular Filtration Rate (test code = 86678-5) 60- >60 Ranges were taken from the National Kidney Disease Education Program and the [facility] Kid[facility] Foundation literature.Reference ranges:60 or greater: Cbovql24-55 ( for 3 consecutive months): Chronic kidney disease 15 or less: Kidney failureAdventHealth Rollins BrookGlucose Bpujy2090-00-65 18:33:00* Test Item Value Reference Range Interpretation Comments Glucose Level (test code = NIM1181) 90 74-118 [facility] BrookCalcium Aqslo1657-63-21 18:33:00* Test Item Value Reference Range Interpretation Comments Calcium Level (test code = 40246-6) 9.5 8.4-10.2 [facility] BrookTotal Stjufowgo8004-80-18 18:33:00* Test Item Value Reference Range Interpretation Comments Total Bilirubin (test code = 1975-2) 0.5 0.2-1.2 [facility] BrookAspartate Amino Transf (AST/SGOT) 2017-08-08 18:33:00* Test Item Value Reference Range Interpretation Comments Aspartate Amino Transf (AST/SGOT) (test code = Aspartate Amino Transf (AST/SGOT)) 28 5-34 [facility] BrookAlanine Aminotransferase (ALT/SGPT) 2017-08-08 18:33:00* Test Item Value Reference Range Interpretation Comments Alanine Aminotransferase (ALT/SGPT) (test code = 1742-6) 31 0-55 [facility] BrookTotal Hxmbaqw3820-07-64 18:33:00* Test Item Value Reference Range Interpretation Comments Total Protein (test code = 2885-2) 7.9 6.5-8.1 [facility] BrookAlbumin2018-04-10 18:33:00* Test Item Value Reference Range Interpretation Comments Albumin (test code = 1751-7) 4.4 3.5-5.0 [facility] BrookGlobulin2018-04-10 18:33:00* Test Item Value Reference Range Interpretation Comments Globulin (test code = 61187-2) 3.5 2.3-3.5 [facility] BrookAlbumin/Globulin Pwlks1600-89-34 18:33:00 * Test Item Value Reference Range Interpretation Comments Albumin/Globulin Ratio (test code = 1759-0) 1.3 0.8-2.0 [facility] BrookAlkaline Mkeavitcxjg0981-64-84 18:33:00* Test Item Value Reference Range Interpretation Comments Alkaline Phosphatase (test code = 6768-6) 55 40-150 [facility] BrookWhite Blood Zgugs1770-52-41 18:18:00* Test Item Value Reference Range Interpretation Comments White Blood Count (test code = 6690-2) 8.74 4.8-10.8 [facility] [id number] 18:18:00* Test Item Value Reference Range Interpretation Comments Red Blood Count (test code = 789-8) 5.11 3.6-5.1 H [facility]emoglobin2018-04-10 18:18:00* Test Item Value Reference Range Interpretation Comments Hemoglobin (test code = 38319-8) 15.5 12.0-16.0 [facility]ematocrit2018-04-10 18:18:00* Test Item Value Reference Range Interpretation Comments Hematocrit (test code = 4544-3) 46.0 34.2-44.1 H [facility] Corpuscular Ezelmy7866-12-97 18:18:00* Test Item Value Reference Range Interpretation Comments Mean Corpuscular Volume (test code = 787-2) 90.0 81-99 [facility] Corpuscular Fmkbvqvkzm7406-28-09 18:18:00* Test Item Value Reference Range Interpretation Comments Mean Corpuscular Hemoglobin (test code = 785-6) 30.3 28-32 [facility] Corp[facility] Hemoglobin Concent 2017-08-08 18:18:00* Test Item Value Reference Range Interpretation Comments Mean Corpuscular Hemoglobin Concent (test code = 786-4) 33.7 31-35 [facility] Cell Distribution Eqdzn1075-61-99 18:18:00* Test Item Value Reference Range Interpretation Comments Red Cell Distribution Width (test code = 96642-5) 12.5 11.7 -14.4 [facility] BrookPlatelet Gxtfa7453-12-93 18:18:00* Test Item Value Reference Range Interpretation Comments Platelet Count (test code = 777-3) 245 140-360 [facility]Neutrophils (%) (Auto)2017-08-08 18:18:00 * Test Item Value Reference Range Interpretation Comments Neutrophils (%) (Auto) (test code = 50653-1) 68.3 38.7-80.0 [facility]Lymphocytes (%) (Auto)2017-08-08 18:18:00 * Test Item Value Reference Range Interpretation Comments Lymphocytes (%) (Auto) (test code = 736-9) 25.4 18.0-39.1 [facility]ocytes (%) (Auto)2017-08-08 18:18:00* Test Item Value Reference Range Interpretation Comments Monocytes (%) (Auto) (test code = 5905-5) 5.0 4.4-11.3 [facility]osinophils (%) (Auto)2017-08-08 18:18:00 * Test Item Value Reference Range Interpretation Comments Eosinophils (%) (Auto) (test code = 713-8) 0.8 0.0-6.0 [facility]ophils (%) (Auto)2017-08-08 18:18:00* Test Item Value Reference Range Interpretation Comments Basophils (%) (Auto) (test code = 706-2) 0.2 0.0-1.0 [facility]IM GRANULOCYTES %2017-08-08 18:18:00* Test Item Value Reference Range Interpretation Comments IM GRANULOCYTES % (test code = IM GRANULOCYTES %) 0.3 0.0- 1.0 [facility]Neutrophils # (Auto)2017-08-08 18:18:00* Test Item Value Reference Range Interpretation Comments Neutrophils # (Auto) (test code = 751-8) 6.0 2.1-6.9 [facility] BrookLymphocytes # (Auto)2017-08-08 18:18:00* Test Item Value Reference Range Interpretation Comments Lymphocytes # (Auto) (test code = 27094-3) 2.2 1.0-3.2 [facility]ocytes # (Auto)2017-08-08 18:18:00* Test Item Value Reference Range Interpretation Comments Monocytes # (Auto) (test code = 742-7) 0.4 0.2-0.8 [facility]osinophils # (Auto)2017-08-08 18:18:00* Test Item Value Reference Range Interpretation Comments Eosinophils # (Auto) (test code = 711-2) 0.1 0.0-0.4 [facility]ophils # (Auto)2017-08-08 18:18:00* Test Item Value Reference Range Interpretation Comments Basophils # (Auto) (test code = 704-7) 0.0 0.0-0.1 [facility]Absolute Immature Granulocyte (auto 2017-08-08 18:18:00* Test Item Value Reference Range Interpretation Comments Absolute Immature Granulocyte (auto (leslie t code = Absolute Immature Granulocyte (auto) 0.03 0-0.1 [facility]rine [id number] 18:11:00* Test Item Value Reference Range Interpretation Comments Urine WBC (test code = 5821-4) 0-5 0-5 [facility] [id number] 18:11:00* Test Item Value Reference Range Interpretation Comments Urine RBC (test code = 18293-0) 6-10 0-5 H [facility] Ffyptmhc7189-45-88 18:11:00* Test Item Value Reference Range Interpretation Comments Urine Bacteria (test code = 58529-4) FEW NONE [facility] Epithelial Lxepi2771-89-72 18:11:00 * Test Item Value Reference Range Interpretation Comments Urine Epithelial Cells (test code = 64890-5) MODERATE NONE [facility] Jcmei0950-71-13 18:11:00* Test Item Value Reference Range Interpretation Comments Urine Mucus (test code = 8247-9) FEW RARE H [facility] Jmlo4605-35-26 18:09:00* Test Item Value Reference Range Interpretation Comments Urine Test (test code = 2106-3) NEGATIVE NEGATIVE [facility] Bnlxk8743-74-52 18:00:00* Test Item Value Reference Range Interpretation Comments Urine Color (test code = 5778-6) YELLOW YELLOW [facility] Ambqpkg8394-16-86 18:00:00* Test Item Value Reference Range Interpretation Comments Urine Clarity (test code = 08059-4) CLEAR CLEAR [facility] Specific Ozzxtwv9640-12-25 18:00:00 * Test Item Value Reference Range Interpretation Comments Urine Specific [place] (test code = 5811-5) 1.015 1.010-1.02 5 [facility] [id number] 18:00:00* Test Item Value Reference Range Interpretation Comments Urine pH (test code = 65754-3) 8 5-7 H [facility] Leukocyte Osvotnwl4147-33-38 18:00:00* Test Item Value Reference Range Interpretation Comments Urine Leukocyte Esterase (test code = 5799-2) NEGATIVE NEGATIVE [facility] Cqrzaaj8658-91-98 18:00:00* Test Item Value Reference Range Interpretation Comments Urine Nitrite (test code = 91283-0) NEGATIVE NEGATIVE [facility] Lcesetk7931-66-05 18:00:00* Test Item Value Reference Range Interpretation Comments Urine Protein (test code = 5804-0) TRACE NEGATIVE H [facility] Glucose (UA)2017-08-08 18:00:00* Test Item Value Reference Range Interpretation Comments Urine Glucose (UA) (test code = 2349-9) NEGATIVE NEGATIVE [facility] Jjybnvi9167-98-75 18:00:00* Test Item Value Reference Range Interpretation Comments Urine Ketones (test code = 47139-9) TRACE NEGATIVE H [facility] Uqkrodmmkotz1738-10-96 18:00:00* Test Item Value Reference Range Interpretation Comments Urine Urobilinogen (test code = 28020-0) 0.2 0.2-1 [facility] Qqkhovpun2089-86-90 18:00:00* Test Item Value Reference Range Interpretation Comments Urine Bilirubin (test code = 1978-6) NEGATIVE NEGATIVE [facility] Zfhqz6568-03-33 18:00:00* Test Item Value Reference Range Interpretation Comments Urine Blood (test code = 26910-6) 1+ NEGATIVE H [facility] BrookChemistry2015-05-11 20:44:37462 MEQ/L [facility] IijkbsmFbbiyizmz1659-99-24 20:44:004.0 [facility] HermannChemistry 2014-09-08 20:44:000.5[facility] IrediauLnqwslnge6913-87-24 20:44:009[facility] NapmfllKnopucpsb7926-97-92 20:44:00* Test Item Value Reference Range Interpretation Comments BUN/CREAT (test code = BUN/CREAT) 18 1 6-25 [facility] WzfnylgEznyogufu6008-64-70 20:44:004.5[facility] HermannChemistry 2014-09-08 20:44:009.5[facility] PyeltsiEndbakryd3625-54-06 20:44:0029[facility] KjxqzkdCwlnogkwm4691-45-11 20:44:0025[facility] GxkxjydKbkdmfuyn7816-18-92 20:44:0067[facility] TenzpwuZfplzzzyk5930-12-80 20:44:000.916[facility] Bandar Lqizavbglb2547-77-91 20:44:0013.8[facility] RbldgkoLjfpggjpcr5102-31-28 20:44:00 42.5[facility] OscmbgiPutpawgvwc1301-88-30 20:44:20741 K/CMMMemorial Rowe
--- OUTSIDE RECORDS SUMMARY | 2020-01-11 02:25 | XMS REPORT | Continuity of Care Document ---
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 Condition 09/16/2014 [facility] 625.9 - FEM GENITAL SYM 626.2 - EXCESSIV Active 09/08/2014 [facility] MENORRHAGIA Active 09/08/2014 Condition 09/16/2014 [facility] PELVIC PAIN Active 09/08/2014 Condition 09/16/2014 [facility] Medications No Data Provided for This Section Allergies, Adverse Reactions, Alerts No Known Medication Allergies Immunizations No Data Provided for This Section Results Order Name Results Value Reference Range Date Interpretation Comments Source Chemistry SODIUM 140 MEQ/L 135 - 145 09/08/2014 [facility] Chemistry POTASSIUM 4.0 MEQ/L 3.5 - 5.1 09/08/2014 [facility] Chemistry CREATININE 0.5 0.5 - 1.4 09/08/2014 [facility] Chemistry BUN 9 7 - 22 09/08/2014 [facility] Chemistry BUN/CREAT 18 6 - 25 09/08/2014 [facility] Chemistry ALBUMIN 4.5 3.5 - 5.0 09/08/2014 [facility] Chemistry CALCIUM 9.5 8.5 - 10.5 09/08/2014 [facility] Chemistry SGPT (ALT) 29 0 - 65 09/08/2014 [facility] Chemistry SGOT (AST) 25 0 - 37 09/08/2014 [facility] Chemistry ALK PHOS 67 39 - 136 09/08/2014 [facility] Chemistry TSH 0.916 0.360 - 3.740 09/08/2014 [facility] Hematology HGB 13.8 12.0 - 16.0 09/08/2014 [facility] Hematology HCT 42.5 36.0 - 48.0 09/08/2014 [facility] Hematology PLATELETS 195 K/CMM 133 - 450 09/08/2014 [facility] Pathology Reports No Data Provided for This Section Diagnostic Reports Report Value Date Source Pelvis w Pelvis Transvaginal US TRANSVESICAL AND [...] fluid. IMPRESSION: 1. Decreasing size left paraovarian cyst . Scattered follicles and follicular cysts otherwise in both ovaries. Additional short interval follow-up is recommended to document further regression. 2. Normal uterus and endometrial stripe. SL:17 10/20/2014 [facility] Transvaginal US EXAM: Pelvic ultrasound HISTORY: Pelvic [...] follow-up ultrasound is advised to reevaluate. SL: 17 [facility]12[facility] Consultation Notes No Data Provided for This Section Discharge Summaries No Data Provided for This Section History and Physicals No Data Provided for This Section Vital Signs Vital Sign Value Date Comments Source Height 62 0 09/08/2014 [facility] Weight 96 0 09/08/2014 [facility] Temperature Oral (F) 98.1 F 09/08/2014 [facility] Respitory Rate 16 09/08/2014 [facility] Heart Rate 68 09/08/2014 [facility] Systolic (mm Hg) 113 09/08/2014 [facility] Diastolic (mm Hg) 78 09/08/2014 [facility] Encounters Location Location Details Encounter Type Encounter Number Reason For Visit Attending Provider ADM Date DC Date Status Source [facility] Lab Report [id number] Lindsey Osborne MD 09/08/2014 09/08/2014 [facility] Office Visit [id number] Lindsey Osborne MD 09/08/2014 09/08/2014 [facility] Outpatient Imaging [facility] Outpt Diag Services [id number] 00 Lindsey [facility] 09/12/2014 09/13/2014 [facility] Office Visit [id number] Kurtis Carnes MD 09/16/2014 09/16/2014 [facility] Outpatient Imaging [facility] [id number] [facility]21/2014 [facility] Outpatient [id number] [facility] 03/28/[address] [facility] Procedures No Data Provided for This Section Assessment and Plan No Data Provided for This Section Plan of Care No Data Provided for This Section Social History Social History Date Source No data available for this section 10/21/2014 [facility] Family History No Data Provided for This Section Advance Directives No Data Provided for This Section Functional Status No Data Provided for This Section
[2020-01-11] MEDS ORDERED: HYDROXYZINE HCL 25 MG TAB PO ONE (02:30)
[2020-01-11 02:44] LABS: ALANINE AMINOTRANSFERASE 16 IU/L (0-55); ALBUMIN 4.4 g/dL (3.5-5.0); ALBUMIN/GLOBULIN RATIO 1.5 (0.8-2.0); ALKALINE PHOSPHATASE 64 IU/L (40-150); ANION GAP 20.1 mmol/L (8-16); BLOOD UREA NITROGEN 5 mg/dL (7-26); BUN/CREATININE RATIO 7 (6-25); CALCIUM 8.9 mg/dL (8.4-10.2); CARBON DIOXIDE 18 mmol/L (22-29); CHLORIDE 104 mmol/L (98-107); CREATININE, SERUM 0.75 mg/dL (0.57-1.11); EST GLOMERULAR FILTRATION RATE > 60 ML/MIN (60-); GLUCOSE 81 mg/dL (74-118); POTASSIUM 3.1 mmol/L (3.5-5.1); SODIUM 139 mmol/L (136-145)
[2020-01-11] MEDS ORDERED: POTASSIUM CHLORIDE 20 MEQ TAB CR PO STA (03:02)
--- NOTE | 2020-01-11 03:02 | Emergency Department Note ---
History of Present Illnes History of Present Illness Chief Complaint: Neurological History of Present Illness This is a 44 year old female Chief Complaint Comment 44 Y/O FEMALE PT AAOX3 PRESENTS TO THE ER C/O FEELING LIGHTHEAD AND DIZZINESS ONSET YESTERDAY EVENING AROUND 2100; PT ALSO REPORTS VOMITING SEVERAL TIMES; PT STATES "I FEEL LIKE I AM GOING TO BLACK OUT" Historian: Patient Arrival Mode: Inorganic Chemist Required: No Onset (how long ago): hour(s) (5) Location: Head Quality: Light headed Radiation: Reports non-radiation Severity: severe Onset quality: gradual Duration (how long): hour(s) (5) Timing of current episode: constant Progression: worsening Chronicity: new Context: Denies recent illness, Denies recent surgery Relieving factors: none Exacerbating factors: none Associated symptoms: Reports denies other symptoms Treatments prior to arrival: none Past Medical/Family History Physician Review I have reviewed the patient's past medical and family history. Any updates have been documented here. Past Medical History Recent Fever: No Clinical Suspicion of Infectio: No New/Unexplained Change in Ment: No Other Medical History: OVARIAN CYST COLITIS Past Surgical History: None Other Surgery: OVARIAN CYST REMOVAL MITRAL VALVE PROLAPSE Other Last Tetanus: >5yrs Review of Systems Review of Systems Constitutional: Reports as per HPI EENTM: Reports no symptoms Cardiovascular: Reports no symptoms Respiratory: Reports no symptoms Gastrointestinal: Reports no symptoms Genitourinary: Reports no symptoms Musculoskeletal: Reports no symptoms Integumentary: Reports no symptoms Neurological: Reports as per HPI, Reports headache Psychological: Reports no symptoms Endocrine: Reports no symptoms Hematological/Lymphatic: Reports no symptoms Physical Exam Related Data Allergies: Coded Allergies: No Known Allergies (Unverified , 10/16/19) Triage Vital Signs Vital Signs Date Time Temp Pulse Resp B/P (MAP) Pulse Ox O2 Delivery O2 Flow Rate FiO2 01/11/20 02:11 98.3 79 24 122/82 100 Room Air Vital signs reviewed: Yes Physical Exam CONSTITUTIONAL Constitutional: Present well-developed, Present well-nourished, Present distressed HENT HENT: Present normocephalic, Present atraumatic, Present oropharynx clear/ moist, Present nose normal HENT L/R: Present left ext ear normal, Present right ext ear normal EYES Eyes: Reports PERRL, Reports conjunctivae normal NECK Neck: Present ROM normal PULMONARY Pulmonary: Present effort normal, Present breath sounds normal CARDIOVASCULAR Cardiovascular: Present regular rhythm, Present heart sounds normal, Present capillary refill normal, Present normal rate GASTROINTESTINAL Abdominal: Present soft, Present nontender, Present bowel sounds normal GENITOURINARY Genitourinary: Present exam deferred SKIN Skin: Present warm, Present dry MUSCULOSKELETAL Musculoskeletal: Present ROM normal NEUROLOGICAL Neurological: Present alert, Present oriented x 3, Present no gross motor or sensory deficits; Absent cranial nerve deficit, Absent abnormal coordination PSYCHOLOGICAL Psychological: Present mood/affect normal, Present judgement normal Results Laboratory Result Diagram: 01/11/207 01/11/207 Laboratory Laboratory Tests Test 01/11/20 02:17 White Blood Count 6.68 x10e3/uL (4.8-10.8) Red Blood Count 5.34 x10e6/uL (3.6-5.1) Hemoglobin 12.9 g/dL (12.0-16.0) Hematocrit 41.6 % (34.2-44.1) Mean Corpuscular Volume 77.9 fL (81-99) Mean Corpuscular Hemoglobin 24.2 pg (28-32) Mean Corpuscular Hemoglobin Concent 31.0 g/dL (31-35) Red Cell Distribution Width 16.3 % (11.7-14.4) Platelet Count 288 x10e3/uL (140-360) Neutrophils (%) (Auto) 35.9 % (38.7-80.0) Lymphocytes (%) (Auto) 53.7 % (18.0-39.1) Monocytes (%) (Auto) 9.0 % (4.4-11.3) Eosinophils (%) (Auto) 1.0 % (0.0-6.0) Basophils (%) (Auto) 0.3 % (0.0-1.0) Neutrophils # (Auto) 2.4 (2.1-6.9) Lymphocytes # (Auto) 3.6 (1.0-3.2) Monocytes # (Auto) 0.6 (0.2-0.8) Eosinophils # (Auto) 0.1 (0.0-0.4) Basophils # (Auto) 0.0 (0.0-0.1) Absolute Immature Granulocyte (auto 0.01 x10e3/uL (0-0.1) Sodium Level 139 mmol/L (136-145) Potassium Level 3.1 mmol/L (3.5-5.1) Chloride Level 104 mmol/L (98-107) Carbon Dioxide Level 18 mmol/L (22-29) Anion Gap 20.1 mmol/L (8-16) Blood Urea Nitrogen 5 mg/dL (7-26) Creatinine 0.75 mg/dL (0.57-1.11) Estimat Glomerular Filtration Rate > 60 ML/MIN (60-) BUN/Creatinine Ratio 7 (6-25) Glucose Level 81 mg/dL (74-118) Calcium Level 8.9 mg/dL (8.4-10.2) Magnesium Level 1.9 MG/DL (1.3-2.1) Total Bilirubin 0.4 mg/dL (0.2-1.2) Aspartate Amino Transf (AST/SGOT) 20 IU/L (5-34) Alanine Aminotransferase (ALT/SGPT) 16 IU/L (0-55) Alkaline Phosphatase 64 IU/L (40-150) Troponin I 0.002 ng/mL (0-0.300) Total Protein 7.4 g/dL (6.5-8.1) Albumin 4.4 g/dL (3.5-5.0) Globulin 3.0 g/dL (2.3-3.5) Albumin/Globulin Ratio 1.5 (0.8-2.0) Human Chorionic Gonadotropin, Qual Negative (NEGATIVE) Lab results reviewed: Yes Imaging Imaging results reviewed: Yes Diagnostics Tests Diagnostic test(s) reviewed: Yes Procedures 12 Lead ECG Interpretation ECG Interpretation : Inorganic Chemist: Interpreted by ED physician Date: Jan 11, 2020 Rhythm: sinus rhythm Ectopy: frequent PVC's Rate: normal BPM: 79 QRS axis: normal ST segments normal: Yes T waves normal: Yes Clinical Impression: non-specific ECG Assessment & Plan Medical Decision Making MDM 44 y.o F w/ PMH of MV regurg presents for light headedness. Headaches for 4 days off and on, light headedness starting 5 hours ago worsening 15 minutes ago. Initial differential includes symptomatic PVC's, thyroid disorder, stroke, ACS among others. Exam is largely unremarkable, she is initially distressed but is calm on re-exam. 25mg Atarax given. Work up largely unremarkable. Offered admiss ion but she would prefer to DC and f/u w/ Dr. Levine outpatient. Will Rx Meclizine and she will f/u w/ Dr. Levine. Patient is appropriate for DC. Reassessment Reassessment time: 02:51 Reassessment Less distressed Assessment & Plan Final Impression: (1) Dizziness Depart Disposition: HOME, SELF-CARE Last Vital Signs Date Time Temp Pulse Resp B/P (MAP) Pulse Ox O2 Delivery O2 Flow Rate FiO2 01/11/20 02:11 98.3 79 24 122/82 100 Room Air Home Meds Reported Medications Dexlansoprazole (DEXILANT) 60 Mg Cap..mp, 60 MG PO PRN THERAPEUTIC INTERCHANGE WITH PROTONIX PER [facility] 10/11/19 Pantoprazole Sodium (PROTONIX) 20 Mg Tablet.dr, 40 MG PO DAILY, #30 TAB 10/11/19 Mesalamine (APRISO) 0.375 Gm Cap.er.24h, 0.375 GM PO DAILY, #30 CAP 10/11/19 Multivitamin (MULTIVITAMINS) 1 Each Capsule, 1 EACH PO DAILY 03/17/16 Medications in the ED Hydroxyzine HCl 25 mg ONCE ONCE PO ; Start 01/11/20 at 02:30; Stop 01/11/20 at 02:38; Status DC RAVINDRA SR MD Jan 11, 2020 03:02
[2020-01-11] MEDS ORDERED: SODIUM CHLORIDE 0.9% 500ML 500 ML IV STA (03:38)
--- NOTE | 2020-01-11 03:40 | Diagnostic Imaging Report ---
EXAMINATION: Head CT without contrast. HISTORY:Dizziness. COMPARISON:None. TECHNIQUE: Multidetector axial images were obtained from the foramen magnum to the vertex without contrast. The images were reconstructed using brain and bone algorithms. Thin section brain images were reformatted into coronal and sagittal planes. Dose modulation, iterative reconstruction, and/or weight based adjustment of the mA/kV was utilized to reduce the radiation dose to as low as reasonably achievable. Intravenous contrast: None IMAGE QUALITY: Acceptable. FINDINGS: Skull/scalp: No lytic or blastic. lesions. No surgical changes. Parenchyma: No abnormal density. No acute hemorrhage, mass or acute major vascular territorial infarct. Arteries: No density suggestive of thrombosis. Dural sinuses: No abnormal density suggestive of thrombosis. Ventricles: No hydrocephalus or displacement. Extra-axial spaces: No abnormal density. Brain volume: Normal for age. Craniocervical junction: No mass, Chiari malformation, or basilar invagination. Sella: No mass. Paranasal/mastoid sinuses: Imaged portions unremarkable. IMPRESSION: No intracranial abnormality. Signed by: Dr. Cadence De La Torre M.D. on 01/11/2020 3:37 AM
[2020-01-11] MEDS ORDERED: MECLIZINE HCL12.5 MG PO (04:20)
--- NOTE | 2020-01-11 04:34 | Diagnostic Imaging Report ---
EXAMINATION: CHEST SINGLE (PORTABLE) INDICATION: Short of breath COMPARISON: Abdominal CT 08/09/2018 FINDINGS: TUBES and LINES: None. LUNGS: Normal lung volumes. Lungs are clear. No consolidations. PLEURA: No pleural effusion or pneumothorax. HEART AND MEDIASTINUM: The cardiomediastinal silhouette is unremarkable. BONES AND SOFT TISSUES: No acute osseous lesion. Soft tissues are unremarkable. UPPER ABDOMEN: No free air under the diaphragm. IMPRESSION: No acute thoracic radiographic abnormality. Signed by: Heriberto Tello DO on 01/11/2020 4:31 AM
== END 2020-01-11 05:20 | disposition home or self-care (01) ==
LOC: ER 02:22
DX: R42 Dizziness and giddiness (principal); R51 Headache
CPT/HCPCS: 36415; 70450; 71045; 80053; 83735; 84443; 84484; 84702; 85025; 93005; 99284; J3410; J7040

== ENCOUNTER → 2020-04-29 | Outpatient (CLI) | payer OTHER ==
[~2020-04-29] MED LIST changes: +COVID-19 VACC, MRNA(MODERNA)/PF 100 MCG/0.5 ML VIAL IM ONE; +MECLIZINE HCL12.5 MG PO
== END ==
LOC: VACCPMC 13:43
DX: Z23 Encounter for immunization (principal); Z20.828 Contact with and (suspected) exposure to other viral communicable diseases

== ENCOUNTER → 2020-06-01 | Outpatient (CLI) | payer OTHER | LOC: VACCPMC 07:25 | DX: Z23 Encounter for immunization (principal); Z20.822 Contact with and (suspected) exposure to COVID-19 | CPT/HCPCS: 0012A; 91301 ==

== ENCOUNTER → 2020-12-23 | Outpatient (CLI) | payer OTHER ==
[~2020-12-23] MED LIST changes: -COVID-19 VACC, MRNA(MODERNA)/PF 100 MCG/0.5 ML VIAL IM ONE
[2020-12-23 16:14] LABS: BASOPHILS % 0.2 % (0.0-1.0); EOSINOPHILS % 0.2 % (0.0-6.0); HEMATOCRIT 34.3 % (34.2-44.1); HEMOGLOBIN 10.1 g/dL (12.0-16.0); LYMPHOCYTES # (AUTO) 2.7 (1.0-3.2); LYMPHOCYTES % 18.7 % (18.0-39.1); MEAN CORPUSCULAR HEMOGLOBIN 22.2 pg (28-32); MEAN CORPUSCULAR HGB CONC 29.4 g/dL (31-35); MEAN CORPUSCULAR VOLUME 75.6 fL (81-99); MONOCYTES # (AUTO) 0.6 (0.2-0.8); MONOCYTES % 4.2 % (4.4-11.3); NEUTROPHILS # (AUTO) 11.2 (2.1-6.9); NEUTROPHILS % 76.3 % (38.7-80.0); PLATELET COUNT 328 x10e3/uL (140-360); RED BLOOD COUNT 4.54 x10e6/uL (3.6-5.1); RED CELL DISTRIBUTION WIDTH 15.8 % (11.7-14.4)
[2020-12-23 16:34] LABS: ALBUMIN 4.1 g/dL (3.5-5.0); ALBUMIN/GLOBULIN RATIO 1.3 (0.8-2.0); ANION GAP 20.1 mmol/L (8-16); CALCIUM 9.3 mg/dL (8.4-10.2); CREATININE, SERUM 0.73 mg/dL (0.57-1.11); POTASSIUM 4.1 mmol/L (3.5-5.1)
== END ==
LOC: LAB 15:57
PROVIDERS: ATTEND Internal Medicine Gastroenterology
DX: R11.2 Nausea with vomiting, unspecified (principal); R10.12 Left upper quadrant pain; K51.50 Left sided colitis without complications; K21.9 Gastro-esophageal reflux disease without esophagitis; K44.9 Diaphragmatic hernia without obstruction or gangrene; Z68.1 Body mass index [BMI] 19.9 or less, adult
CPT/HCPCS: 36415; 80053; 83690; 85025

== ENCOUNTER → 2020-12-24 | Outpatient (CLI) | payer OTHER ==
[~2020-12-24] MED LIST changes: +IOPAMIDOL 370 MG/ML 200 ML INFUS..BTL INJ ONE; +SODIUM CHLORIDE 0.9% 50ML 50 ML ONE
== END ==
LOC: CT 14:37
PROVIDERS: ATTEND Internal Medicine Gastroenterology
DX: R11.2 Nausea with vomiting, unspecified (principal); R10.32 Left lower quadrant pain; K51.50 Left sided colitis without complications; K21.9 Gastro-esophageal reflux disease without esophagitis
CPT/HCPCS: 74177; 81025; Q9967

== ENCOUNTER → 2021-02-17 | Day surgery (SDC) | payer OTHER ==
[~2021-02-17] MED LIST changes: -IOPAMIDOL 370 MG/ML 200 ML INFUS..BTL INJ ONE; +PROBIOTIC & AC1 EACH PO; -SODIUM CHLORIDE 0.9% 50ML 50 ML ONE
[2021-02-17 11:34] VITALS: BP 135/66
== END | disposition home or self-care (01) ==
LOC: OR 08:00
PROVIDERS: ATTEND Internal Medicine Gastroenterology
DX: K29.00 Acute gastritis without bleeding (principal); K29.50 Unspecified chronic gastritis without bleeding; K21.00 Gastro-esophageal reflux disease with esophagitis, without bleeding; K44.9 Diaphragmatic hernia without obstruction or gangrene; K51.90 Ulcerative colitis, unspecified, without complications; Z01.812 Encounter for preprocedural laboratory examination; Z20.822 Contact with and (suspected) exposure to COVID-19
CPT/HCPCS: 43239; 81025; U0002

== ENCOUNTER → 2021-02-26 | Outpatient (CLI) | payer OTHER ==
[~2021-02-26] MED LIST changes: +COVID-19 VACC, MRNA(MODERNA)/PF 100 MCG/0.5 ML VIAL IM ONE
== END ==
LOC: VACCPMC 07:08
DX: Z23 Encounter for immunization (principal); Z20.822 Contact with and (suspected) exposure to COVID-19
CPT/HCPCS: 91301

== ENCOUNTER 2022-09-17 22:39 | Observation (INO) | payer BC, OTHER ==
[~2022-09-17] VITALS: Ht 157.5 cm; Wt 49.9 kg
[~2022-09-17 22:39] MED LIST changes: -COVID-19 VACC, MRNA(MODERNA)/PF 100 MCG/0.5 ML VIAL IM ONE
[2022-09-17] MEDS ORDERED: ONDANSETRON HCL INJ 2MG/ML 2ML 2 MG/ML VIAL IV STA (22:41)
[2022-09-17] MEDS ORDERED: SODIUM CHLORIDE 0.9% 1000ML 1,000 ML IV ONE (22:45)
[2022-09-17] MEDS ORDERED: Morphine 4mg INJECTION 4 MG/ML INJ IV ONE (22:45)
[2022-09-17 23:28] LABS: BASOPHILS % 0.2 % (0.0-1.0); EOSINOPHILS % 0.1 % (0.0-6.0); HEMATOCRIT 45.5 % (34.2-44.1); HEMOGLOBIN 15.6 g/dL (12.0-16.0); LYMPHOCYTES % 22.6 % (18.0-39.1); MEAN CORPUSCULAR HEMOGLOBIN 32.1 pg (28-32); MEAN CORPUSCULAR HGB CONC 34.3 g/dL (31-35); MEAN CORPUSCULAR VOLUME 93.6 fL (81-99); MONOCYTES # (AUTO) 0.6 (0.2-0.8); MONOCYTES % 4.3 % (4.4-11.3); NEUTROPHILS # (AUTO) 9.6 (2.1-6.9); NEUTROPHILS % 72.5 % (38.7-80.0); PLATELET COUNT 256 x10e3/uL (140-360); RED BLOOD COUNT 4.86 x10e6/uL (3.6-5.1); RED CELL DISTRIBUTION WIDTH 11.8 % (11.7-14.4)
[2022-09-17 23:34] LABS: CLARITY,URINE CLOUDY (CLEAR); COLOR,URINE YELLOW (YELLOW); KETONES,URINE 1+ (NEGATIVE); LEUKOCYTE ESTERASE ,URINE 1+ (NEGATIVE); NITRITE,URINE NEGATIVE (NEGATIVE); PROTEIN,URINE DIPSTICK 1+ (NEGATIVE); URINE UROBILINOGEN 0.2 mg/dL (0.2 - 1)
[2022-09-17 23:39] LABS: INR 0.9; PARTIAL THROMBOPLASTIN TIME 41.3 seconds (23.8-35.5); PROTHROMBIN TIME 12.6 seconds (11.9-14.5)
[2022-09-17 23:46] LABS: BACTERIA,URINE MANY /HPF; EPITHELIAL CELLS,URINE MANY /LPF; TRANSITIONAL EPI CELLS,URINE FEW; WBC,URINE (MAN) >50 /HPF (0-5)
[2022-09-17 23:48] LABS: ALBUMIN 4.8 g/dL (3.5-5.0); ALBUMIN/GLOBULIN RATIO 1.4 (0.8-2.0); ANION GAP 16.9 mmol/L (8-16); CALCIUM 9.8 mg/dL (8.4-10.2); CREATININE, SERUM 0.79 mg/dL (0.57-1.11); POTASSIUM 3.9 mmol/L (3.5-5.1)
[2022-09-17 23:49] LABS: LIPASE 15 U/L (8-78)
[2022-09-17] MEDS ORDERED: IOPAMIDOL 370 MG/ML 100 ML INFUS..BTL INJ ONE (23:59)
[2022-09-18] VITALS (8 sets, daily range): BP systolic 90–119; BP diastolic 54–84; PULSE 67–96; RESP 16–19; TEMP 97.9–100.4; O2SAT 98–100
[2022-09-18] MEDS ORDERED: PROMETHAZINE 12.5MG/ NACL 0.9% 12.5 MG/50 ML BAG IV ONE (01:15)
[2022-09-18] MEDS: METRONIDAZOLE 500MG/NS 100ML 100 ML IV SCH ×4 (01:27→17:19)
[2022-09-18] MEDS ORDERED: Morphine 4mg INJECTION 4 MG/ML INJ IV PRN (01:30)
[2022-09-18] MEDS ORDERED: ONDANSETRON HCL INJ 2MG/ML 2ML 2 MG/ML VIAL IV PRN (01:30)
[2022-09-18] MEDS: SODIUM CHLORIDE 0.9% 1000ML 1,000 ML IV SCH ×3 (01:34→20:21)
[2022-09-18] MEDS ORDERED: PANTOPRAZOLE SOD 40 MG TABEC PO SCH (07:30)
[2022-09-18] MEDS ORDERED: MECLIZINE HCL 12.5 MG TAB PO PRN (07:30)
[2022-09-18] MEDS: MESALAMINE 0.375 GM CAPCR PO SCH ×2 (09:00→20:34)
[2022-09-18] MEDS: MULTIVITAMINS/MINERALS TAB PO SCH (09:00)
[2022-09-18] MEDS: PANTOPRAZOLE SOD 40 MG TABEC PO SCH (09:00)
[2022-09-18] MEDS: LACTOBACILLUS ACIDOPHILUS CAPSULE PO SCH (09:00)
[2022-09-18] MEDS: ACETAMINOPHEN 325 MG TAB PO PRN ×3 (10:20→22:51)
[2022-09-18] MEDS ORDERED: METHYLPREDNISOLONE SOD SUCC 40 MG/ML VIAL 1ML IV SCH (14:00)
[2022-09-18] MEDS: METHYLPREDNISOLONE 4 MG TAB PO SCH ×2 (16:23→22:50)
[2022-09-18] MEDS ORDERED: MESALAMINE 0.375 GM CAPCR PO ONE (21:45)
[2022-09-19 00:40] VITALS: BP 112/70; PULSE 94; RESP 18; TEMP 97.9; O2SAT 100
[2022-09-19] MEDS: METRONIDAZOLE 500MG/NS 100ML 100 ML IV SCH ×5 (00:44→23:24)
[2022-09-19 04:00] VITALS: BP 95/57; PULSE 83; RESP 16; TEMP 98.9; O2SAT 99
[2022-09-19] MEDS: METHYLPREDNISOLONE 4 MG TAB PO SCH ×3 (05:17→21:32)
[2022-09-19] MEDS: ACETAMINOPHEN 325 MG TAB PO PRN ×2 (05:17→13:29)
[2022-09-19] MEDS: SODIUM CHLORIDE 0.9% 1000ML 1,000 ML IV SCH ×4 (05:23→23:24)
[2022-09-19 05:57] LABS: BASOPHILS % 0.1 % (0.0-1.0); EOSINOPHILS # (AUTO) 0.1 (0.0-0.4); EOSINOPHILS % 0.4 % (0.0-6.0); HEMATOCRIT 37.8 % (34.2-44.1); HEMOGLOBIN 12.8 g/dL (12.0-16.0); LYMPHOCYTES # (AUTO) 0.3 (1.0-3.2); LYMPHOCYTES % 2.3 % (18.0-39.1); MEAN CORPUSCULAR HEMOGLOBIN 32.2 pg (28-32); MEAN CORPUSCULAR HGB CONC 33.9 g/dL (31-35); MONOCYTES # (AUTO) 0.2 (0.2-0.8); MONOCYTES % 1.2 % (4.4-11.3); NEUTROPHILS # (AUTO) 13.1 (2.1-6.9); NEUTROPHILS % 95.3 % (38.7-80.0); PLATELET COUNT 171 x10e3/uL (140-360); RED BLOOD COUNT 3.98 x10e6/uL (3.6-5.1); RED CELL DISTRIBUTION WIDTH 11.9 % (11.7-14.4)
[2022-09-19 06:28] LABS: ALANINE AMINOTRANSFERASE 14 IU/L (0-55); ALBUMIN 3.4 g/dL (3.5-5.0); ALBUMIN/GLOBULIN RATIO 1.4 (0.8-2.0); ALKALINE PHOSPHATASE 38 IU/L (40-150); ANION GAP 11.5 mmol/L (8-16); BLOOD UREA NITROGEN < 5 mg/dL (7-26); CALCIUM 7.9 mg/dL (8.4-10.2); CARBON DIOXIDE 21 mmol/L (22-29); CHLORIDE 111 mmol/L (98-107); CREATININE, SERUM 0.69 mg/dL (0.57-1.11); GLUCOSE 170 mg/dL (74-118); POTASSIUM 3.5 mmol/L (3.5-5.1); SODIUM 140 mmol/L (136-145)
[2022-09-19 06:32] LABS: BUN/CREATININE RATIO 7 (6-25)
[2022-09-19 07:49] VITALS: BP 97/59; PULSE 78; RESP 16; TEMP 98.3; O2SAT 99
[2022-09-19] MEDS: LACTOBACILLUS ACIDOPHILUS CAPSULE PO SCH (08:43)
[2022-09-19] MEDS: PANTOPRAZOLE SOD 40 MG TABEC PO SCH (08:43)
[2022-09-19] MEDS: MULTIVITAMINS/MINERALS TAB PO SCH (08:43)
[2022-09-19] MEDS ORDERED: MESALAMINE 0.375 GM CAPCR PO SCH ×2 (09:00→21:00)
[2022-09-19 12:28] VITALS: BP 96/54; PULSE 78; RESP 19; TEMP 98.6; O2SAT 99
[2022-09-19 16:56] VITALS: BP 104/61; PULSE 85; RESP 19; TEMP 98.3; O2SAT 98
[2022-09-19 20:40] VITALS: BP 111/52; PULSE 70; RESP 17; TEMP 97.9; O2SAT 100
[2022-09-20 00:37] VITALS: BP 101/58; PULSE 70; RESP 16; TEMP 98.6; O2SAT 99
[2022-09-20 01:06] VITALS: BP 101/58; PULSE 70; RESP 16; TEMP 98.6; O2SAT 99
[2022-09-20 04:52] VITALS: BP 110/65; PULSE 64; RESP 16; TEMP 98.1; O2SAT 99
[2022-09-20] MEDS: METRONIDAZOLE 500MG/NS 100ML 100 ML IV SCH (05:16)
[2022-09-20] MEDS: METHYLPREDNISOLONE 4 MG TAB PO SCH (05:16)
[2022-09-20 06:02] LABS: BASOPHILS % 0.2 % (0.0-1.0); EOSINOPHILS # (AUTO) 0.1 (0.0-0.4); EOSINOPHILS % 1.1 % (0.0-6.0); HEMATOCRIT 40.4 % (34.2-44.1); HEMOGLOBIN 13.2 g/dL (12.0-16.0); LYMPHOCYTES # (AUTO) 0.5 (1.0-3.2); LYMPHOCYTES % 4.6 % (18.0-39.1); MEAN CORPUSCULAR HEMOGLOBIN 31.7 pg (28-32); MEAN CORPUSCULAR HGB CONC 32.7 g/dL (31-35); MEAN CORPUSCULAR VOLUME 96.9 fL (81-99); MONOCYTES # (AUTO) 0.4 (0.2-0.8); MONOCYTES % 3.3 % (4.4-11.3); NEUTROPHILS # (AUTO) 10.2 (2.1-6.9); NEUTROPHILS % 89.9 % (38.7-80.0); PLATELET COUNT 203 x10e3/uL (140-360); RED BLOOD COUNT 4.17 x10e6/uL (3.6-5.1); RED CELL DISTRIBUTION WIDTH 12.2 % (11.7-14.4)
[2022-09-20 08:09] VITALS: BP 119/67; PULSE 60; RESP 19; TEMP 98.4; O2SAT 98
[2022-09-20] MEDS: MULTIVITAMINS/MINERALS TAB PO SCH (09:00)
[2022-09-20] MEDS: PANTOPRAZOLE SOD 40 MG TABEC PO SCH (09:00)
[2022-09-20] MEDS: LACTOBACILLUS ACIDOPHILUS CAPSULE PO SCH (09:00)
[2022-09-20] MEDS: SODIUM CHLORIDE 0.9% 1000ML 1,000 ML IV SCH (09:02)
== END 2022-09-20 10:15 | disposition home or self-care (01) ==
LOC: ER 22:45 → ERHOLD 09-18 01:27 → MED/SURG2 09-18 03:23
PROVIDERS: ADMIT Family Medicine; ATTEND Family Medicine
DX: K51.90 Ulcerative colitis, unspecified, without complications (principal); D72.829 Elevated white blood cell count, unspecified; R73.9 Hyperglycemia, unspecified; T38.0X5A Adverse effect of glucocorticoids and synthetic analogues, initial encounter; N39.0 Urinary tract infection, site not specified; K62.89 Other specified diseases of anus and rectum; I10 Essential (primary) hypertension; Z20.822 Contact with and (suspected) exposure to COVID-19; Z79.899 Other long term (current) drug therapy
CPT/HCPCS: 0223U; 36415 ×4; 74174; 80053 ×2; 81001; 83690; 84702; 85025 ×3; 85610; 85730; 86140; 86850; 86900 ×2; 87086; 87186; 99284; C9113 ×2; G0378 ×3; J0696 ×2; J2270; J2405; J2550; J7030 ×3; J7509 ×3; Q9967; S0164 ×2